=== PATIENT | male | born 1960 | race Caucasian/White ===

== ENCOUNTER 2018-01-28 18:54 | Inpatient (IN) | payer MEDICAID, OTHER ==
[2018-01-28 19:00] VITALS: BMI 26.6
[2018-01-28 19:28] VITALS: O2SAT 99
--- NOTE | 2018-01-28 19:54 | ED PDOC ---
Arrival/HPI - General Chief Complaint: Psychiatric Evaluation Time Seen by Provider: 01/28/18 19:34 Historian: Patient, Other (hospital documentation) - History of Present Illness Narrative History of Present Illness (Text): 01/28/18 20:00 57yr old male presents today as direct admission for depression with suicide attempt. pt states he drank alcohol and developed chest pain and took too many nitroglycerins. pt states after being in the hospital for the past 6days he is feeling much better. pt denies cp or sob. denies n/v/d/c. no abdominal pain. pt denies SI at present time. Past Medical History - Provider Review Nursing Documentation Reviewed: Yes - Travel History Have you recently traveled outside [place] w/in the past 3 mons?: No - Tetanus Immunization Tetanus Immunization: Unknown - Cardiac Hx Cardiac Disorders: Yes Hx Angina: Yes - Pulmonary Hx Respiratory Disorders: No - Neurological Hx Neurological Disorder: No - HEENT Hx HEENT Disorder: No - Renal Hx Renal Disorder: No - Endocrine/Metabolic Hx Endocrine Disorders: Yes Hx Diabetes Mellitus Type 2: Yes - Hematological/Oncological Hx Blood Disorders: No - Integumentary Hx Dermatological Disorder: No - Musculoskeletal/Rheumatological Hx Musculoskeletal Disorders: No - Gastrointestinal Hx Gastrointestinal Disorders: No - Genitourinary/Gynecological Hx Genitourinary Disorders: No - Psychiatric Hx Psychophysiologic Disorder: Yes Hx Depression: Yes Hx Substance Use: No - Surgical History Hx Cardiac Catheterization: Yes Hx Coronary Stent: Yes (15) Hx Orthopedic Surgery: Yes (right hand) Family/Social History - Physician Review Nursing Documentation Reviewed: Yes Family/Social History: Unknown Family HX Smoking Status: Never Smoked Hx Alcohol Use: Yes Frequency of alcohol use: Daily Hx Substance Use: No Allergies/Home Meds Allergies/Adverse Reactions: Allergies No Known Allergies Allergy (Verified 01/28/18 18:59) Review of Systems - Review of Systems Constitutional: absent: Fatigue, Fevers Respiratory: absent: SOB, Cough Cardiovascular: absent: Chest Pain, Palpitations Gastrointestinal: absent: Abdominal Pain, Nausea, Vomiting Genitourinary Male: absent: Dysuria, Frequency, Hematuria Musculoskeletal: absent: Arthralgias, Back Pain, Neck Pain Skin: absent: Rash, Pruritis Neurological: absent: Headache, Dizziness Psychiatric: absent: Anxiety, Depression, Suicidal Ideation Physical Exam Vital Signs Reviewed: Yes Vital Signs Temp Pulse Resp BP Pulse Ox 01/28/18 19:24 97.8 F 76 18 148/92 H 99 Temperature: Afebrile Blood Pressure: Hypertensive Pulse: Regular Respiratory Rate: Normal Appearance: Positive for: Well-Appearing, Non-Toxic, Comfortable Pain Distress: None Mental Status: Positive for: Alert and Oriented X 3 - Systems Exam Head: Present: Atraumatic Mouth: Present: Moist Mucous Membranes Neck: Present: Normal Range of Motion Respiratory/Chest: Present: Clear to Auscultation, Good Air Exchange. No: Respiratory Distress, Accessory Muscle Use Cardiovascular: Present: Regular Rate and Rhythm, Normal S1, S2. No: Murmurs Abdomen: No: Tenderness, Rebound, Guarding Upper Extremity: Present: Normal ROM Lower Extremity: Present: Normal ROM Neurological: Present: GCS=15 Skin: Present: Warm, Dry, Normal Color. No: Rashes Psychiatric: Present: Alert, Oriented x 3 Medical Decision Making ED Course and Treatment: 01/28/18 20:02 Patient is nontoxic well-appearing in no distress vital signs are stable. all labs and documents from [facility]. pt was hospitalized for 6 days prior to transfer to psychiatric unit. No signs of etoh withdrawal. pt denies any complaints. all aspects of this case were discussed the attending of record. Impression; depression, SI Admit to behavioral health Disposition/Present on Arrival - Present on Arrival Any Indicators Present on Arrival: No History of DVT/PE: No History of Uncontrolled Diabetes: No Urinary Catheter: No History of Decub. Ulcer: No History Surgical Site Infection Following: None - Disposition Have Diagnosis and Disposition been Completed?: Yes Diagnosis: Depression Disposition: HOSPITALIZED Disposition Time: 19:45 Patient Plan: Admission Patient Problems: Current Active Problems Problem Status Onset Depression Acute Condition: FAIR
[2018-01-29] MEDS ORDERED: Magnesium Hydroxide Susp 30 ml UD PO PRN (00:29)
[2018-01-29] MEDS ORDERED: Alum-Mag Hydrox-Simethicone Susp (30 mL) PO PRN (00:29)
--- NOTE | 2018-01-29 04:22 | PCM.BM ---
<Arden Champion - Last Filed: 01/29/18 04:19> Treatment Plan Problems - Problems identified on initial assessmt Ineffective Coping Date Initiated: 01/28/18 Time Initiated: 20:30 Assessment reference: NA Status: Active Priority: 1 Feelings of Worthlessness Date Initiated: 01/28/18 Time Initiated: 20:30 Assessment reference: NA Status: Active Priority: 2 Social Isolation Date Initiated: 01/28/18 Time Initiated: 20:30 Assessment reference: NA Status: Active Priority: 3 Activity Intolerance Date Initiated: 01/28/18 Time Initiated: 20:30 Assessment reference: NA Status: Active Priority: 4 Treatment assets and liabiliti Patient Assests: adapts well, cooperative, educated, insightful, motivated, ADL independent, good support system, negotiates basic needs, financial stabiity, cognitively intact, good interpersonal skills, strong keith Patient Liabilities: medical problems, other (Alcohol abuse liability) - Milieu Protocol Maintain good personal hygiene: daily Encourage regular showers, every shift Remind patient to perform daily oral care, every shift Assist patient to perform ADL's Maintain personal safety: every shift Educate patient to report safety concerns to staff, every shift Monitor environment for contraband/sharps Medication safety: Monitor for expected outcome, potential side effects: every shift, Assess barriers to learning: every shift, Assess readiness for medication education: every shift Family Contact Family involvement: Family/SO is involved Family contact: Patient agrees to contact - Goals for Treatment Patient goals for treatment: "I would like help in controlling anger. of my mother on January,. I was very stressed. Not making enough moneycompared to what I was making. I feel a little bad about it." Discharge/Continuing Care - Education Needs Education Needs: Family Medication, Family Diagnosis/Disease Process, Family Coping Skills, Family Anger Management skills, Family Activities of Daily Living , Family Nutrition, Family Aftercare Safety Plan, Patient Medication, Patient Diagnosis/Disease Process, Patient Coping Skills, Patient Anger Management skills, Patient Community resources, Patient Activities of Daily Living, Patient Pain, Patient Nutrition, Patient Health Practices/Safety, Patient Personal Hygiene/Grooming, Patient Aftercare Safety Plan - Discharge Discharge Criteria: Tolerates medication w/o severe side effects <Lety Ley - Last Filed: 01/30/18 16:14> Family Contact Family contact name: Diana Omer(daughter) Family contacted how many times per week?: 2
[2018-01-29 07:15] VITALS: RESP 20
[2018-01-29 07:32] LABS: GLUCOSE,FASTING 112 mg/dL (65-110); HDL CHOLESTEROL 38 mg/dL (29-60)
[2018-01-29 07:42] LABS: LDL CHOLESTEROL 67 mg/dL (0-129)
--- NOTE | 2018-01-29 15:46 | CP.PCM.CON ---
<Leonides Humphrey - Last Filed: 01/30/18 07:05> History of Present Illness - History of Present Illness History of Present Illness: Consult note for Hospitalist Dr. Lipscomb Patient is a 57 M with extensive CAD history s/p 15 stents who presents from [facility] for further psychiatry evaluation for original concerns of alcohol abuse secondary to depression with suicidal ideation. Patient states he has a history of alcohol abuse mainly because he enjoys being drunk at times. 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 States he accidentally took too much nitroglycerin due to being drunk. Denies chest pain, shortness of breath, palpitations, nausea, vomiting, weakness, dizziness, diarrhea, cough, headache, suicidal ideation, depression, anxiety. Review of Systems - Constitutional Constitutional: absent: Anorexia, Chills, Fever, Headache, Night Sweats - EENT Eyes: absent: Blind Spots, Blurred Vision - Cardiovascular Cardiovascular: absent: Chest Pain, Dyspnea, Edema - Respiratory Respiratory: absent: Cough, Dyspnea, Hemoptysis - Gastrointestinal Gastrointestinal: absent: Abdominal Pain, Diarrhea, Nausea, Vomiting - Genitourinary Genitourinary: absent: Dysuria, Flank Pain - Neurological Neurological: absent: Abnormal Gait, Disequilibrium, Dizziness, Headaches, Syncope, Weakness - Psychiatric Psychiatric: absent: Anxiety, Depression, Suicidal Ideation - Hematologic/Lymphatic Hematologic: absent: Lymphadenopathy Past Patient History - Tetanus Immunizations Tetanus Immunization: Unknown - Past Social History Smoking Status: Never Smoked - CARDIAC Hx Cardiac Disorders: Yes Hx Angina: Yes - PULMONARY Hx Respiratory Disorders: No - NEUROLOGICAL Hx Neurological Disorder: No - HEENT Hx HEENT Problems: No - RENAL Hx Chronic Kidney Disease: No - ENDOCRINE/METABOLIC Hx Endocrine Disorders: Yes Hx Diabetes Mellitus Type 2: Yes - HEMATOLOGICAL/ONCOLOGICAL Hx Blood Disorders: No - INTEGUMENTARY Hx Dermatological Problems: No - MUSCULOSKELETAL/RHEUMATOLOGICAL Hx Musculoskeletal Disorders: No - GASTROINTESTINAL Hx Gastrointestinal Disorders: No - GENITOURINARY/GYNECOLOGICAL Hx Genitourinary Disorders: No - PSYCHIATRIC Hx Psychophysiologic Disorder: Yes Hx Depression: Yes Hx Substance Use: No - SURGICAL HISTORY Hx Cardiac Catheterization: Yes Hx Coronary Stent: Yes (15) Hx Orthopedic Surgery: Yes (right hand) Meds Allergies/Adverse Reactions: Allergies Allergy/AdvReac Type Severity Reaction Status Date / Time No Known Allergies Allergy Verified 03/18/14 19:34 - Medications Medications: Current Medications Acetaminophen (Tylenol 325mg Tab) 650 mg PO Q6H PRN PRN Reason: Pain, moderate (4-7) Al Hydrox/Mg Hydrox/Simethicone (Maalox Plus 30 Ml) 30 ml PO DAILY PRN PRN Reason: Indigestion / Heartburn Ascorbic Acid (Vitamin C 500 Mg Tab) 1,000 mg PO QOTHERDAY [facility] Last Admin: 01/29/18 09:07 Dose: 1,000 mg Aspirin (Ecotrin) 81 mg PO DAILY [facility] Last Admin: 01/29/18 09:07 Dose: 81 mg Atenolol (Tenormin) 50 mg PO DAILY [facility] Last Admin: 01/29/18 09:06 Dose: 50 mg Atorvastatin Calcium (Lipitor) 80 mg PO DIN [facility] Famotidine (Pepcid) 20 mg PO DAILY [facility] Last Admin: 01/29/18 09:06 Dose: 20 mg Fenofibrate (Tricor) 145 mg PO DAILY [facility] Last Admin: 01/29/18 09:06 Dose: 145 mg Folic Acid (Folic Acid) 1 mg PO DAILY [facility] Last Admin: 01/29/18 09:07 Dose: 1 mg Home Med (Home Med) 1 unit PO DAILY [facility] Last Admin: 01/29/18 13:26 Dose: Not Given Lamotrigine (Lamictal) 50 mg PO DAILY [facility] PRN Reason: Protocol Last Admin: 01/29/18 09:07 Dose: 50 mg Lisinopril (Zestril) 20 mg PO DAILY [facility] Last Admin: 01/29/18 09:08 Dose: 20 mg Magnesium Hydroxide (Milk Of Magnesia) 30 ml PO DAILY PRN PRN Reason: Constipation Metformin HCl (Glucophage) 500 mg PO DAILY [facility] Last Admin: 01/29/18 09:08 Dose: 500 mg Multivitamins/Minerals (Therapeutic-M Tab) 1 tab PO 0800 [facility] Prasugrel (Effient) 10 mg PO DAILY [facility] Last Admin: 01/29/18 09:07 Dose: 10 mg Thiamine HCl (Vitamin B1 Tab) 100 mg PO DAILY [facility] Physical Exam - Head Exam Head Exam: ATRAUMATIC, NORMAL INSPECTION, NORMOCEPHALIC - Eye Exam Eye Exam: EOMI, Normal appearance - ENT Exam ENT Exam: Mucous Membranes Moist, Normal Exam - Neck Exam Neck exam: Positive for: Normal Inspection - Respiratory Exam Respiratory Exam: Clear to Auscultation Bilateral, NORMAL BREATHING PATTERN. absent: Rhonchi, Wheezes - Cardiovascular Exam Cardiovascular Exam: REGULAR RHYTHM, +S1, +S2 - GI/Abdominal Exam GI & Abdominal Exam: Normal Bowel Sounds, Soft - Extremities Exam Extremities exam: Positive for: normal inspection - Back Exam Back exam: NORMAL INSPECTION - Neurological Exam Neurological exam: Alert, CN II-XII Intact, Oriented x3 - Psychiatric Exam Psychiatric exam: Normal Affect, Normal Mood - Skin Skin Exam: Normal Color, Warm Results - Vital Signs Recent Vital Signs: Last Vital Signs Temp 98.2 F 01/29/18 07:14 Pulse 68 01/29/18 07:14 Resp 20 01/29/18 07:14 BP 122/75 01/29/18 07:14 Pulse Ox 99 01/28/18 19:24 - Labs Labs: Laboratory Results - last 24 hr 01/29/18 01/29/18 06:50 06:50 Fasting Glucose 112 H Triglycerides 241 H Cholesterol 143 LDL Cholesterol Direct 67 HDL Cholesterol 38 TSH 3rd Generation 3.20 Assessment & Plan - Assessment and Plan (Free Text) Assessment: Assessment 57 M with history of alcohol abuse thought to have depression and suicidal ideation presenting from [facility] for further evaluation Plan - Labs reviewed from [facility] reveal no abnormalities - Drug tox screen done was negative - EKG was NSR - Patient states repeatedly he would never want to commit suicide as he has a beautiful family - Patient is medically cleared and should follow up with his PMD, Student Assistant, and psychiatrist upon discharge. <Lamar Lipscomb - Last Filed: 01/30/18 08:36> Meds - Medications Medications: Current Medications Acetaminophen (Tylenol 325mg Tab) 650 mg PO Q6H PRN PRN Reason: Pain, moderate (4-7) Al Hydrox/Mg Hydrox/Simethicone (Maalox Plus 30 Ml) 30 ml PO DAILY PRN PRN Reason: Indigestion / Heartburn Ascorbic Acid (Vitamin C 500 Mg Tab) 1,000 mg PO QOTHERDAY [facility] Last Admin: 01/29/18 09:07 Dose: 1,000 mg Aspirin (Ecotrin) 81 mg PO DAILY [facility] Last Admin: 01/29/18 09:07 Dose: 81 mg Atenolol (Tenormin) 50 mg PO DAILY [facility] Last Admin: 01/29/18 09:06 Dose: 50 mg Atorvastatin Calcium (Lipitor) 80 mg PO DIN [facility] Last Admin: 01/29/18 16:18 Dose: 80 mg Famotidine (Pepcid) 20 mg PO DAILY [facility] Last Admin: 01/29/18 09:06 Dose: 20 mg Fenofibrate (Tricor) 145 mg PO DAILY [facility] Last Admin: 01/29/18 09:06 Dose: 145 mg Folic Acid (Folic Acid) 1 mg PO DAILY [facility] Last Admin: 01/29/18 09:07 Dose: 1 mg Home Med (Home Med) 1 unit PO DAILY [facility] Last Admin: 01/29/18 13:26 Dose: Not Given Lamotrigine (Lamictal) 50 mg PO DAILY [facility] PRN Reason: Protocol Last Admin: 01/29/18 09:07 Dose: 50 mg Lisinopril (Zestril) 20 mg PO DAILY [facility] Last Admin: 01/29/18 09:08 Dose: 20 mg Magnesium Hydroxide (Milk Of Magnesia) 30 ml PO DAILY PRN PRN Reason: Constipation Metformin HCl (Glucophage) 500 mg PO DAILY [facility] Last Admin: 01/29/18 09:08 Dose: 500 mg Multivitamins/Minerals (Therapeutic-M Tab) 1 tab PO 0800 [facility] Prasugrel (Effient) 10 mg PO DAILY [facility] Last Admin: 01/29/18 09:07 Dose: 10 mg Thiamine HCl (Vitamin B1 Tab) 100 mg PO DAILY [facility] Last Admin: 01/29/18 16:09 Dose: 100 mg Results - Vital Signs Recent Vital Signs: Last Vital Signs Temp 98.3 F 01/30/18 07:25 Pulse 72 01/30/18 07:25 Resp 20 01/30/18 07:25 BP 116/80 01/30/18 07:25 Pulse Ox 99 01/28/18 19:24 - Labs Labs: Laboratory Results - last 24 hr 01/29/18 06:50 RPR Nonreactive Attending/Attestation - Attestation I have personally seen and examined this patient.: Yes I have fully participated in the care of the patient.: Yes I have reviewed all pertinent clinical information: Yes Notes (Text): 01/29/18 57 year old male with past medical history of alcohol abuse who was initially admitted after alcohol intoxication with ?overdose on nitroglycerin. He was transferred to psychiatric unit. Medical consultation was requested for evaluation. Labs were reviewed from [facility]. He was counselled on alcohol abstinence. Agree with resuming home cardiac medications. Recommend to follow up with resource manager forester upon discharge. Further management as per psychiatrist. Thank you Dr. Pugh for allowing us to participate in the care of this patient. Please re-consult as needed. Lamar Lipscomb MD Hospitalist.
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
[2018-01-30 07:26] VITALS: BP 116/80; PULSE 72; TEMP 98.3
[2018-01-30] MEDS ORDERED: Multivitamin With Minerals Tab PO SCH (08:00)
[2018-01-30 13:00] LABS: ALB/GLOB RATIO 1.5 (1.1-1.8); ALBUMIN 4.3 g/dL (3.0-4.8); BILIRUBIN,DIRECT 0.3 mg/dL (0.0-0.4)
--- NOTE | 2018-01-31 19:18 | DS ---
IDENTIFYING INFORMATION: The patient is a 57-year-old male who had been transferred from [facility] where he had initially come after a purported accident in which he drank alcohol and nitroglycerin leading to his initially being hospitalized in the intensive care unit and then transferred to a medical floor and then transferred to Psychiatry for further observation and treatment. HISTORY OF PRESENT ILLNESS: The patient who was in much denial, with the focus of concern of his family, including two daughters who are physicians and a son going to school for a biologic research career (a PhD). The patient was described as having a long history of alcohol abuse, with intermittent outbursts that could be construed as a suicidal or self-destructive activity, including a wrist slashing, and repeated bouts of alcohol intoxication. This had led to several detox'es and rehabs before, but the patient in much denial about the extent of his problem. He has been under treatment of sorts from a psychiatrist friend in who had been giving him Lamictal over the phone based on their intermittent conversations. 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 The reason for the significant down swing in his business, in which he purportedly loss millions of dollars, may have been due to his alcohol use. The patient has had an extensive medical history due to coronary artery disease and has lead to 15 stents. He has had orthopedic surgery on his right hand also. He has had diabetes mellitus. He was referred to the [facility] program. The patient is not considered to be an acute suicidal risk and psychiatrically stable. His daughters have expressed concern at times that he may be somewhat deceptive in the social adroitness that he is able to present which may mask the full extent of his intermittent alcohol use/abuse. His children expressed concern about a certain impulsiveness while under the influence of alcohol. However, on the psychiatric unit, he did not present any psychiatric signs and symptoms of depression, suicidality, psychosis. He was started on both naltrexone and Campral. The patient also indicated that he finds he worries excessively about his children's well being and seems to be a very caring father and grandfather to the extent that he travels on a daily basis to [place] to see his 2-year-old grandson. In response to this persistent worry/anxiety, possibly a manifestation of his generalized anxiety disorder, the patient was also started on Zoloft 50 mg. The patient indicated that not only he will be going to [facility], but that he will go to attend meetings as well. The patient's biochemical profile was within normal limits including an AST and ALT levels and bilirubin levels. Triglycerides were elevated at 241. At the time of discharge, the patient was alert, oriented to three spheres, pleasant, makes good eye contact, spoke in a goal-directed manner, was not considered to be homicidal, suicidal, or psychotic with he having meaningful insight, but his judgment is clouded at times by his impulsive surges, possibly under the influence of alcohol. 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 The patient was to attend a intensive outpatient program at [facility]. Mc Pope MD/ PhD
== END 2018-01-30 17:00 | disposition home or self-care (01) | DRG 751 ==
LOC: ED 18:54 → ERH 19:54 → MERGE 19:54 → PSYC 20:25
PROVIDERS: ADMIT Psychiatry & Neurology Addiction Medicine; ATTEND Psychiatry & Neurology Addiction Medicine
DX: F10.94 Alcohol use, unspecified with alcohol-induced mood disorder (principal); F32.89 Other specified depressive episodes; E11.9 Type 2 diabetes mellitus without complications; I25.10 Atherosclerotic heart disease of native coronary artery without angina pectoris; Z95.5 Presence of coronary angioplasty implant and graft; R40.2412 Glasgow coma scale score 13-15, at arrival to emergency department